=== PATIENT | male | born 1990 | race American Indian/Alaskan Native ===

== ENCOUNTER 2020-04-09 10:05 | Emergency (ER) | payer SELFPAY ==
[2020-04-09 10:20] VITALS: BP 133/85
--- NOTE | 2020-04-09 11:55 | Emergency Department Report ---
Chief Complaint: Urogenital-Male Stated Complaint: BOIL Time Seen by Provider: 04/09/20 11:48 - HPI History of Present Illness: 29-year-old male presents the ED complaining of bump to the penile shaft x1 week. Patient states that he has some pus come out of it which resolved. He denies any penile pain, scrotal pain, scrotal swelling, fever, chills, dysuria or any other symptoms. - ROS Review of Systems: As noted in HPI - Exam Vital Signs: Vital Signs 04/09/20 10:19 Temperature 98.5 F Pulse Rate 77 Respiratory 16 Rate Blood Pressure 133/85 [Right] O2 Sat by Pulse 100 Oximetry Physical Exam: GENERAL: Alert and oriented x3, no apparent distress, Normal Gait, atraumatic. HEAD: Head is normocephalic and a-traumatic. UROGENITAL: No scrotal mass, Scrotum non tender to palpation bilaterally, no hernia, no scars or penile discharge. Small. Pump nontender to palpation of the posterior penile shaft. Nonerythematous, SKIN: Warm and dry, No lesions, No ulceration or induration present. MSE screening note: Focused history and physical exam performed. Due to findings the following was ordered: ED Medical Decision Making - Medical Decision Making 29-year-old male presents with a bump to the penile area. Looks like a mild insect bite that is healing. Discussed application of topical antibiotic for 10 prevention prevention. Discussed follow-up with primary care physician in 3 to 5 days. Vital signs are normal patient is in no acute distress. ED Disposition for MSE Clinical Impression: Insect bite Disposition: DC-01 TO HOME OR SELFCARE Is pt being admited?: No Does the pt Need Aspirin: No Condition: Stable Instructions: Insect Bite or Sting (ED) Additional Instructions: Make sure to follow up with the primary care physician as discussed. If you have any worsening symptoms or develop new symptoms please return to ED immediately. Prescriptions: Bacitracin/Polymixin B [Polysporin] 1 applicatio TP BID #1 tube Referrals: PRIMARY CARE, [Primary Care Provider] - 3-5 Days [facility] [Provider Group] - 3-5 Days Forms: Work/School Release Form(ED) Time of Disposition: 11:54
== END 2020-04-09 11:56 | disposition home or self-care (01) ==
LOC: ED 10:05
DX: S30.862A Insect bite (nonvenomous) of penis, initial encounter (principal); W57.XXXA Bitten or stung by nonvenomous insect and other nonvenomous arthropods, initial encounter; Y93.89 Activity, other specified; Y92.89 Other specified places as the place of occurrence of the external cause; Y99.8 Other external cause status
CPT/HCPCS: 99282